=== PATIENT | male | born 1975 | race Caucasian/White ===

== ENCOUNTER 2020-12-01 17:17 | Emergency (ER) | payer OTHER ==
[2020-12-01 17:40] LABS: BASOPHIL 0.7 % (0-2); EOSINOPHIL 4.3 % (0-5); HCT 47.6 % (42.0-52.0); HGB 15.6 g/dl (13.2-18.0); LYMPHOCYTE 28.9 % (15-48); MCH 30.7 pg (25.0-31.0); MCHC 32.8 g/dL (32.0-36.0); MCV 93.7 fL (78.0-100.0); MONOCYTE 8.6 % (0-12); MPV 9.8 fL (6.0-9.5); NEUTROPHIL 57.1 % (41-80); NRBC 0; PLT 256 K/uL (150-400); RBC 5.08 M/uL (4.70-6.00); RDW 11.9 % (11.5-14.0)
[2020-12-01 17:55] LABS: BILIRUBIN NEGATIVE (NEGATIVE); BLOOD NEGATIVE Ery/uL (NEGATIVE); CLARITY CLEAR (CLEAR); COLOR YELLOW (YELLOW); GLUCOSE (U) NORMAL (NORMAL); LEUKOCYTES NEGATIVE Leu/uL (NEGATIVE); NITRITE NEGATIVE (NEGATIVE); PROTEIN NEGATIVE (NEGATIVE); UROBILINOGEN 0.2 mg/dL (0.2-1.0)
[2020-12-01 17:57] LABS: ALBUMIN 4.1 g/dL (3.4-5.0); BILIRUBIN - TOTAL 0.4 mg/dL (0.2-1.0); BUN/CREAT RATIO (CALC) 14.3 RATIO; CREATININE 0.77 mg/dL (0.67-1.17); GLOBULIN (CALCULATION) 3.6 g/dL; POTASSIUM 4.1 mmol/L (3.5-5.1); TOTAL PROTEIN 7.7 g/dL (6.4-8.2)
[2020-12-01] MEDS ORDERED: NORCO 5-325 TA1 EACH PO ×3 (19:26→19:58)
[2020-12-01] MEDS ORDERED: BENTYL10 MG PO (19:26)
[2020-12-01] MEDS ORDERED: ROBAXIN750 MG PO ×2 (19:57→19:58)
== END 2020-12-01 20:37 | disposition home or self-care (01) ==
LOC: FER 17:17
PROVIDERS: Emergency Medicine
DX: R10.32 Left lower quadrant pain (principal); R11.2 Nausea with vomiting, unspecified; F90.9 Attention-deficit hyperactivity disorder, unspecified type; Z87.442 Personal history of urinary calculi; Z79.899 Other long term (current) drug therapy
CPT/HCPCS: 36415; 80053; 81003; 83690; 84145; 85025; J1170; J1885; J2405; J7030